=== PATIENT | male | born 1945 | race Caucasian/White ===

== ENCOUNTER 2017-04-01 05:49 | Outpatient (CLI) | payer MEDICARE, BC ==
[~2017-04-01] VITALS: Ht 177.8 cm; Wt 88.5 kg
[~2017-04-01 05:49] MED LIST: AMLODIPINE PO; HCT25T PO; HYDR-3714 PO; HYDR1TAB PO; LISI40TA PO; OMEP20TA2 PO; PRAV40TA PO
[2017-04-01] MEDS ORDERED: AMLO10TA2 PO (12:51)
[2017-04-01] MEDS ORDERED: HYDR25TA4 PO (12:51)
[2017-04-01] MEDS ORDERED: OMEP20TA7 PO (12:51)
[2017-04-01] MEDS ORDERED: LISI40TA PO (12:51)
[2017-04-01] MEDS ORDERED: PRAV40TA2 PO (12:51)
== END 2017-04-01 12:54 ==
LOC: PREOP 05:49
PROVIDERS: ATTEND Surgery
DX: Z01.818 Encounter for other preprocedural examination (principal); Z86.010 Personal history of colon polyps

== ENCOUNTER 2017-04-08 09:43 | Day surgery (SDC) | payer MEDICARE, BC, OTHER ==
[~2017-04-08] VITALS: Ht 177.8 cm; Wt 88.5 kg
[~2017-04-08 09:43] MED LIST changes: +AMLO10TA2 PO; +HYDR25TA4 PO; +OMEP20TA7 PO; +PRAV40TA2 PO
--- OUTSIDE RECORDS SUMMARY | 2017-04-08 09:46 | XMS REPORT | Continuity of Care Document ---
Author Author [facility] Organization [facility] Address Unknown Phone Unavailable Allergies Active Description Code Type Severity Reaction Onset Reported/Identified Relationship to Patient Clinical Status Yes No Known Drug Allergies [id number] Drug Allergy Unknown N/A 04/24/2011 Yes SILK TAPE SILK TAPE Moderate "WELTS" 09/15/2014 Medications There is no data. Problems Date Dx Coded Attending Type Code Diagnosis Diagnosed By 05/04/2011 Ot 241.0 NONTOX UNINODULAR GOITER 08/26/2014 Ot 241.0 08/26/2014 Ot 241.0 08/26/2014 Ot 246.9 08/26/2014 Ot 780.79 08/26/2014 Ot V72.63 08/26/2014 Ot V72.81 08/26/2014 Ot V74.8 09/15/2014 LEOBARDO SIMMONS, ANISH Argueta Ot 272.4 HYPERLIPIDEMIA NEC/NOS 09/15/2014 LEOBARDO SIMMONS, ANISH Argueta Ot 401.9 HYPERTENSION NOS 09/15/2014 LEOBARDO SIMMONS, ANISH Argueta Ot 530.81 ESOPHAGEAL REFLUX 09/15/2014 LEOBARDO SIMMONS, ANISH Argueta Ot 553.20 VENTRAL HERNIA NOS 09/15/2014 LEOBARDO SIMMONS, ANISH Argueta Ot V58.69 OTH MED,LT,CURRENT USE 09/16/2014 LEOBARDO SIMMONS, ANISH Argueta Ot 789.00 09/20/2014 LEOBARDO SIMMONS, ANISH Argueta Ot 553.20 09/24/2014 LEOBARDO SIMMONS, ANISH Argueta Ot 246.8 09/24/2014 LEOBARDO SIMMONS, ANISH Argueta Ot V67.09 09/30/2014 LEOBARDO SIMMONS, ANISH Argueta Ot 553.20 09/30/2014 LEOBARDO SIMMONS, ANISH Argueta Ot V72.63 09/30/2014 LEOBARDO SIMMONS, ANISH Argueta Ot V72.81 09/30/2014 LEOBARDO SIMMONS, ANISH Argueta Ot V74.8 11/15/2015 Ot 241.0 NONTOX UNINODULAR GOITER 11/15/2015 Ot 241.0 NONTOX UNINODULAR GOITER 11/15/2015 Ot 246.9 DISORDER OF THYROID NOS 11/15/2015 Ot 780.79 OTH MALAISE FATIGUE 11/15/2015 Ot V72.63 PRE- PROCEDURAL LABORATORY EXAMINATION 11/15/2015 Ot V72.81 EXAM-PRE- OPERATIVE CARDIOVASCULAR 11/15/2015 Ot V74.8 SCREEN- BACTERIAL DIS NEC 11/15/2015 LEOBARDO SIMMONS, ANISH Argueta Ot 553.20 VENTRAL HERNIA NOS 11/15/2015 LEOBARDO SIMMONS, ANISH Argueta Ot 789.00 ABDOMINAL PAIN, UNSPECIFIED SITE 11/15/2015 ANISH BOOTH MD Ot 553.20 VENTRAL HERNIA NOS 11/15/2015 LEOBARDO SIMMONS, ANISH Argueta Ot V72.63 PRE-PROCEDURAL LABORATORY EXAMINATION 11/15/2015 ANISH BOOTH MD Ot V72.81 [id number] CARDIOVASCULAR 11/15/2015 ANISH BOOTH MD Ot V74.8 SCREEN-BACTERIAL DIS NEC 11/15/2015 ANISH BOOTH MD Ot 246.8 DISORDERS OF THYROID NEC 11/15/2015 LEOBARDO SIMMONS, ANISH Argueta Ot V67.09 SURGERY FOLLOW-UP, OTHER SURGERY 11/16/2015 ESPERANZA SANCHEZ MD Ot M75.111 INCOMPLETE ROTATR-CUFF TEAR/RUPTR OF R S 11/17/2015 ESPERANZA SANCHEZ MD Ot M75.111 INCOMPLETE ROTATR-CUFF TEAR/RUPTR OF R S 12/07/2015 ESPERANZA SANCHEZ MD Ot M75.111 INCOMPLETE ROTATR-CUFF TEAR/RUPTR OF R S Procedures There is no data. Results There is no data. Encounters ACCT No. Visit Date/Time Discharge Status Pt. Type Provider Facility Loc./Unit Complaint [id number] 04/01/2017 05:49:00 04/01/2017 12:54:00 DIS Outpatient ANISH BOOTH MD [facility] PREOP COLO [id number] 11/15/2015 15:23:00 11/15/2015 23:59:59 CLS Outpatient ESPERANZA SANCHEZ MD [facility] RAD ROTATOR CUFF TEAR RT [id number] 09/15/2014 06:00:00 09/15/2014 15:50:00 DIS Outpatient ANISH BOOTH MD [facility] SDC VENTRAL HERNIA [id number] 09/08/2014 07:50:00 09/08/2014 23:59:59 CLS Outpatient ANISH BOOTH MD [facility] PREOP VENTRAL HERNIA [id number] 09/03/2014 12:59:00 09/03/2014 23:59:59 CLS Outpatient ANISH BOOTH MD [facility] LAB THYROIDECTOMY [id number] 08/27/2014 09:16:00 08/27/2014 23:59:59 CLS Outpatient ANISH BOOTH MD [facility] RAD VENTRAL HERNIA [id number] 08/26/2014 11:12:00 08/26/2014 23:59:59 CLS Outpatient ANISH BOOTH MD [facility] LAB ABD PAIN [id number] 04/08/2017 11:45:00 PEN Preadmit ANISH BOOTH MD [facility] ENDO HX POLYPS [id number] 08/26/2014 11:11:00 Document Registration [id number] 08/26/2014 11:11:00 Document Registration [id number] 04/24/2011 08:46:00 Document Registration [id number] 02/27/2011 11:58:00 Document Registration
[2017-04-08] MEDS ORDERED: NS IV 500 ML 500 ML IV PRN (09:53)
[2017-04-08] MEDS ORDERED: NS IV 500 ML 500 ML ONE (09:57)
[2017-04-08 10:05] VITALS: BP 151/57
--- NOTE | 2017-04-08 10:54 | Conscious Sedation/ASA ---
Conscious Sedation Pre-Proced Time Reviewed: 10:54 ASA Class: 2 Airway Mallampati Classification: ([place] appropriate class) I. II. III, IV Lungs Heart ASA score ASA 1: a normal healthy patient ASA 2: a patient with a mild systemic disease (mid diabetes, controlled hypertension, obesity ASA 3: a patient with a severe systemic disease that limits activity (angina , COPD, prior Myocardial infarction) ASA 4: a patient with an incapacitating disease that is a constant threat to life (CHF, renal failure) ASA 5: a moribund patient not expected to survive 24 hrs. (ruptured aneurysm) ASA 6: a declared brain patient whose organs are being harvested. For emergent operations, add the letter E after the classification Grade 1 Sedation Plan: Discussed options with patient/fam Note The patient is an appropriate candidate to undergo the planned procedure, sedation, and anesthesia. The patient immediately re-assessed prior to indication. ANISH BOOTH MD Apr 08, 2017 10:54 am
--- NOTE | 2017-04-08 10:54 | History & Physicial ---
History of Present Illness History of Present Illness Reason for visit/HPI to undergo surveillance colonoscopy. Previous history of polyps Date of Admission 04/08/17 Date Seen by Provider: Apr 08, 2017 Time Seen by Provider: 10:52 I consulted on this patient on 04/08/17 10:52 Attending Physician Anish Rosas MD Admitting Physician Kelli Kennedy MD Consult Allergies and Home Medications Allergies Uncoded Allergies: SILK TAPE (Allergy, Intermediate, "WELTS", 09/15/14) Home Medications Amlodipine Besylate 10 Mg Tablet, 10 MG PO DAILY, (Reported) Hydrochlorothiazide 25 Mg Tablet, 12.5 MG PO DAILY, (Reported) take 1/2 of 25mg Lisinopril 40 Mg Tablet, 40 MG PO DAILY, (Reported) Omeprazole 20 Mg Tablet.dr, 20 MG PO DAILY, (Reported) Pravastatin Sodium 40 Mg Tablet, 40 MG PO DAILY, (Reported) Past Syeznlo-Piduby-Ssqane Hx Patient Social History Marrital Status: Employed/Student: retired Alcohol Use: Rarely Uses Recreational Drug Use: No Smoking Status: Former Smoker Former Smoker, Quit: Apr 01, 1981 Recent Foreign Travel: No Contact w/other who traveled: No Recent Hopitalizations: No Recent Infectious Disease Expo: No Immunizations Up To Date Date of Pneumonia Vaccine: Mar 18, 2014 Date of Influenza Vaccine: Dec 16, 2016 Seasonal Allergies Seasonal Allergies: Yes Surgeries Gallbladder Respiratory Yes Sleep Apnea Currently Using CPAP: Yes (hasn't needed since weight loss) Cardiovascular Yes Hypertension Neurological No Reproductive System Hx Reproductive Disorders: No Gastrointestinal Yes Polyps Musculoskeletal No Endocrine History of Endocrine Disorders: Yes Endocrine Disorders: Hypothyroidsim HEENT History of HEENT Disorders: No Cancer No Psychosocial History of Psychiatric Problem: No Integumentary History of Skin or Integumenta: No Family Medical History Significant Family History: No Pertinent Family Hx Constitutional: no symptoms reported EENTM: no symptoms reported Respiratory: no symptoms reported Cardiovascular: no symptoms reported Gastrointestinal: no symptoms reported Genitourinary: no symptoms reported Musculoskeletal: no symptoms reported Skin: no symptoms reported Psychiatric/Neurological: No Symptoms Reported Physical Exam Vital Signs Vital Sign - Last 12Hours 04/08/17 10:05 Temp 97.9 Pulse 61 Resp 18 B/P (MAP) 151/57 (88) Pulse Ox 99 O2 Delivery Room Air Capillary Refill : General Appearance: No Apparent Distress HEENT: Normal ENT Inspection Neck: Normal Inspection Respiratory: Lungs Clear Gastrointestinal: Non Tender, Soft Rectal: Deferred Back: Normal Inspection Extremity: Normal Inspection Neurologic/Psychiatric: Oriented x3 Skin: Warm/Dry Assessment/Plan Assessment and Plan gentleman with a history of colon polyps. For surveillance colonoscopy. Problems: ANISH ROSAS MD Apr 08, 2017 10:54 am
[2017-04-08] MEDS ORDERED: MIDAZOLAM 2 MG/2 ML (VERSED) VIAL ONE ×3 (12:30→12:31)
[2017-04-08] MEDS ORDERED: fentaNYL INJECTION 100 MCG/2 ML AMP ONE (12:31)
[2017-04-08] MEDS: fentaNYL INJECTION 100 MCG/2 ML AMP IVP PRN ×2 (13:05→13:22)
[2017-04-08] MEDS: MIDAZOLAM 2 MG/2 ML (VERSED) VIAL IVP PRN ×3 (13:10→13:25)
[2017-04-08] MEDS ORDERED: ONDANSETRON 4 MG/2 ML (SDV) Z0FRAN ONE (13:22)
[2017-04-08] MEDS ORDERED: ONDANSETRON 4 MG/2 ML (SDV) Z0FRAN IVP ONE (13:45)
[2017-04-08 13:50] VITALS: BP 119/52
--- NOTE | 2017-04-08 13:52 | Endo Procedure Record ---
Endo Procedure Report Date of Procedure Last Colonoscopy: Yes (unsure) Apr 08, 2017 Surgeon (s) ANISH BOOTH MD Post Procedure/Op Diagnosis Sigmoid diverticulosis Procedure Performed Colonoscopy to cecum Description of Procedure Anesthesia Type: Conscious Sedation Specimen(s) collected/removed none Description of the Procedure indication for the procedure: This gentleman came in for polyp surveillance colonoscopy. Informed consent was obtained after reviewing the procedure in detail. Description of procedure: He was placed in left lateral to rectus position and his vital signs were monitored. Conscious sedation was achieved using Versed and fentanyl. Digital rectal examination was unremarkable. The colonoscope was then introduced into the rectum and advanced all the way up to the cecum. The quality of bowel preparation was rather suboptimal. The scope was then withdrawn slowly and the mucosa examined in a systematic fashion. Findings: Sigmoid diverticulosis He tolerated the procedure well and was taken back to the nursing area in a stable condition. Impression: Polyp surveillance. No recurrence. Recommend repeating in 5 years. Copies To: BLAIR KOCH MD, XAVIER M MD Apr 08, 2017 1:51 pm
--- NOTE | 2017-04-08 13:52 | Discharge Inst-Simple/Standard ---
Discharge Inst-Standard Discharge Medications New, Converted or Re-Newed RX: Other Patient Instructions/Follow Up Plan of Care/Instructions/FU: Repeat colonoscopy in 5 years Activity as Tolerated: Yes Discharge Diet: No Restrictions ANISH BOOTH MD Apr 08, 2017 1:52 pm
[2017-04-08 14:18] VITALS: BP 119/58
== END 2017-04-08 14:48 | disposition home or self-care (01) ==
LOC: ENDO 09:43
PROVIDERS: ATTEND Surgery
DX: Z09 Encounter for follow-up examination after completed treatment for conditions other than malignant neoplasm (principal); K57.30 Diverticulosis of large intestine without perforation or abscess without bleeding; Z86.010 Personal history of colon polyps; Z87.891 Personal history of nicotine dependence; I10 Essential (primary) hypertension; E03.9 Hypothyroidism, unspecified; Z79.899 Other long term (current) drug therapy

== ENCOUNTER 2017-07-23 20:30 | Outpatient (CLI) | payer BC, MEDICARE, OTHER | END 2017-07-24 06:50 | disposition home or self-care (01) | LOC: SLEEP 20:30 | PROVIDERS: ATTEND Internal Medicine Pulmonary Disease | DX: G47.33 Obstructive sleep apnea (adult) (pediatric) (principal) | CPT/HCPCS: 95810 ==

== ENCOUNTER → 2017-09-27 | Outpatient (CLI) | payer OTHER ==
--- NOTE | 2017-09-27 12:37 | Diagnostic Imaging Report ---
EXAMINATION: Left shoulder radiographs, two views. COMPARISON: None. HISTORY: 71-year-old male, left shoulder pain. FINDINGS: The left acromioclavicular joint is normally aligned. There are emir-qo-axokrjyb acromioclavicular degenerative changes with 1-2 mm undersurface osteophytes. The humeral head is not obviously dislocated. There is no pronounced glenohumeral joint space loss or osteophyte formation. There is no identified acute fracture. There is no radiographically apparent bone lesion. IMPRESSION: 1. Lvyd-fl-ghmjgiqx acromioclavicular degenerative changes with 1-2 mm undersurface osteophytes. 2. Grossly unremarkable appearance of the glenohumeral joint. Dictated by: Dictated on workstation # [id number]
== END ==
LOC: RAD 10:28
PROVIDERS: ATTEND Family Medicine
DX: M19.012 Primary osteoarthritis, left shoulder (principal)
CPT/HCPCS: 73030

== ENCOUNTER → 2018-01-01 | Outpatient (CLI) | payer MEDICARE, BC ==
[~2018-01-01] MED LIST changes: +ACHD5005 PO; -AMLO10TA2 PO; +AMLO10TA6 PO; +CETI10TA20 PO; +GADOBUTROL 10 MMOL/10 ML (GADAVIST) VIAL IV ONE; +LEVO25TA5 PO
[2018-01-01 10:28] LABS: BUN/CREATININE RATIO 16; CREATININE SERUM 0.83 MG/DL (0.60-1.30); GFR ESTIMATED > 60
--- NOTE | 2018-01-01 14:23 | Diagnostic Imaging Report ---
PROCEDURE: MR imaging of the chest with and without contrast. TECHNIQUE: Multiplanar, multisequence pre and post contrast MR imaging of the chest was performed. INDICATION: Lump on the right side of the mid back for one and a half years. FINDINGS: A marker was placed at the area of palpable abnormality in the right back, along the superior and inferior margins. At the area of palpable abnormality, there is a circumscribed mass located along the right posterior lateral chest wall. The mass abuts the ribs and appears to be deep to the latissimus musculature. This mass measures approximately 9.8 cm x 4.0 cm x 9.5 cm. This appears to be primarily homogeneously increased signal intensity on T1-weighted images, similar to subcutaneous fat. This does appear to suppress on the fat suppression images and is most consistent with a fat-containing mass. This has a very thin capsule. There is questionable minimal internal signal intensity on the axial postcontrast images. IMPRESSION: Fat-containing mass involving the right posterior lateral chest wall at the area of patient's palpable abnormality. While this most likely represents a lipoma, there is questionable minimal internal signal on postcontrast images. The possibility of a liposarcoma cannot be entirely excluded and tissue sampling would be recommended, particularly in light of the fact that the patient reports this increasing in size. Dictated by: Dictated on workstation # [id number]
== END ==
LOC: RAD 09:56
PROVIDERS: ATTEND Surgery
DX: D17.9 Benign lipomatous neoplasm, unspecified (principal); R22.2 Localized swelling, mass and lump, trunk
CPT/HCPCS: 36415; 71552; 82565; 84520

== ENCOUNTER 2018-01-06 14:13 | Outpatient (CLI) | payer MEDICARE, BC ==
[~2018-01-06] VITALS: Ht 177.8 cm; Wt 90.7 kg
[~2018-01-06 14:13] MED LIST changes: -ACHD5005 PO; -GADOBUTROL 10 MMOL/10 ML (GADAVIST) VIAL IV ONE
== END 2018-01-06 14:18 | disposition home or self-care (01) ==
LOC: PREOP 14:13
PROVIDERS: ATTEND Surgery
DX: Z01.818 Encounter for other preprocedural examination (principal)

== ENCOUNTER 2018-01-08 08:30 | Day surgery (SDC) | payer MEDICARE, BC ==
[~2018-01-08] VITALS: Ht 177.8 cm; Wt 90.7 kg
[2018-01-08 08:45] VITALS: BP 149/70
[2018-01-08] MEDS ORDERED: ceFAZolin 2 GM IV Premixed 50 ML IV ONE (08:45)
[2018-01-08] MEDS ORDERED: BUP/EPI 0.5% 1:200,000 (SENSORCAINE) 30 ML VIAL ONE (08:54)
[2018-01-08] MEDS ORDERED: NEOSTIGMINE 1 MG/ML 5 ML SYRINGE ONE ×2 (09:03→10:18)
[2018-01-08] MEDS ORDERED: proPOfol 200 MG/20 ML (DIPRIVAN) VIAL IV ONE (09:03)
[2018-01-08] MEDS ORDERED: DEXAMETHASONE 10 MG/ML (DECADRON) 1 ML VIAL ONE (09:03)
[2018-01-08] MEDS ORDERED: ONDANSETRON 4 MG/2 ML (SDV) Z0FRAN ONE (09:03)
[2018-01-08] MEDS ORDERED: MIDAZOLAM 2 MG/2 ML (VERSED) VIAL ONE (09:03)
[2018-01-08] MEDS ORDERED: fentaNYL INJECTION 100 MCG/2 ML AMP ONE (09:03)
[2018-01-08] MEDS ORDERED: GLYCOPYRROLATE 0.2 MG/ML (ROBINUL) 2 ML VIAL ONE ×2 (09:03→10:18)
[2018-01-08] MEDS ORDERED: ROCURONIUM 10 MG/ML 5 ML SYRINGE IV ONE (09:03)
[2018-01-08] MEDS ORDERED: LIDOCAINE PF 2% 5 ML (XYLOCAINE) VIAL ONE (09:03)
[2018-01-08] MEDS ORDERED: SEVOFLURANE (ULTANE) 15 ML INHAL SOLN ONE (09:03)
[2018-01-08] MEDS ORDERED: LACTATED RINGERS 1,000 ML IV PRN (09:22)
--- NOTE | 2018-01-08 09:23 | Progress Note-Pre Operative ---
Pre-Operative Progress Note H&P Reviewed The H&P was reviewed, patient examined and no changes noted. Date Seen by Provider: Dec 13, 2017 Time Seen by Provider: 11:00 Date H&P Reviewed: Jan 08, 2018 Time H&P Reviewed: 09:23 Pre-Operative Diagnosis: Lipoma of right scapular region ANISH BOOTH MD Jan 08, 2018 09:23
[2018-01-08] MEDS ORDERED: ACHD5005 PO (09:41)
--- NOTE | 2018-01-08 09:42 | Discharge Inst-Simple/Standard ---
Discharge Inst-Standard Discharge Medications New, Converted or Re-Newed RX: RX on Chart Patient Instructions/Follow Up Plan of Care/Instructions/FU: Dressings off in 48 hours. Follow-up in 3 weeks. No sutures to be removed Activity as Tolerated: Yes Discharge Diet: No Restrictions ANISH BOOTH MD Jan 08, 2018 09:42
[2018-01-08] MEDS ORDERED: ONDANSETRON 4 MG/2 ML (SDV) Z0FRAN IVP PRN (10:45)
[2018-01-08] MEDS ORDERED: morphine INJ 10 MG/ML 1ML (SYR OR VIAL) IVP ONE (10:45)
--- NOTE | 2018-01-08 10:59 | Operative Report ---
Operative Report Date of Procedure/Surgery Jan 08, 2018 Surgeon (s) ANISH BOOTH MD Clerk Secretary (s): Delonte Dubois ( Med Student III) Post-Operative Diagnosis Intramuscular lipoma right scapular region Procedure Performed Excision Description of Procedure Anesthesia Type: General Estimated blood loss (mL): Minimal Specimen(s) collected/removed Lipoma Description of the Procedure Indication for the procedure: This gentleman presented with a symptomatically, large intramuscular lipoma situated over the right scapular region. MRI confirmed the clinical impression. He was offered excision. Informed consent was obtained after reviewing the operative details and complications of hematoma , wound infection and recurrence. Description of the procedure: Initially, he was placed supine on the gurney and general anesthesia induced. Subsequently, he was turned prone onto the operating table and his pressure areas were padded and protected. Ancef was administered intravenously as prophylaxis against wound infection. After adequate antiseptic preparation, preemptive analgesia was established using 0.5 percent Marcaine with epinephrine. A transverse incision about 12 cm in length was made and the fibers of the latissimus dorsi muscle where , leading to the Seal of the lipoma. It was isolated and excised intact. It measured at least 12 cm in diameter. Hemostasis was achieved using ligaclips and cautery. The area was irrigated with saline and the muscle fibers were approximated using 3-0 PDS sutures. The fascia was closed using 3-0 Vicryl and skin using 4- 0 Vicryl, in a subcuticular fashion. He tolerated the procedure well, was turned supine, before being extubated and taken to the recovery room in a stable condition. Findings of the Procedure See operative report Allergies and Home Medications Allergies Uncoded Allergies: SILK TAPE (Allergy, Intermediate, "WELTS", 09/15/14) Home Medications Amlodipine Besylate 10 Mg Tablet, 10 MG PO DAILY, (Reported) Cetirizine HCl 10 Mg Tablet, 10 MG PO DAILY, (Reported) Hydrochlorothiazide 25 Mg Tablet, 12.5 MG PO DAILY, (Reported) take 1/2 of 25mg Hydrocodone Bit/Acetaminophen 1 Tab Tab, 1-2 TAB PO Q6H PRN for PAIN-MODERATE Prescribed by: ANISH BOOTH on 01/08/18 0941 Levothyroxine Sodium 25 Mcg Tablet, 25 MCG PO DAILY, (Reported) Lisinopril 40 Mg Tablet, 40 MG PO DAILY, (Reported) Omeprazole 20 Mg Tablet.dr, 20 MG PO DAILY, (Reported) Pravastatin Sodium 40 Mg Tablet, 40 MG PO DAILY, (Reported) Patient Home Medication List Home Medication List Reviewed: Yes ANISH BOOTH MD Jan 08, 2018 10:59
[2018-01-08 11:40] VITALS: BP 146/60
[2018-01-08 12:10] VITALS: BP 144/63
[2018-01-08] MEDS ORDERED: HYDROcodone/APAP 5 MG/325 MG (LORTAB) TAB PO ONE (12:30)
[2018-01-08] MEDS ORDERED: HYDROcodone/APAP 5 MG/325 MG (LORTAB) TAB ONE (12:32)
[2018-01-08 12:40] VITALS: BP 142/61
== END 2018-01-08 13:00 | disposition home or self-care (01) ==
LOC: SDC 08:30
PROVIDERS: ATTEND Surgery
DX: D17.9 Benign lipomatous neoplasm, unspecified (principal); Z11.2 Encounter for screening for other bacterial diseases; I10 Essential (primary) hypertension; E78.5 Hyperlipidemia, unspecified; G47.33 Obstructive sleep apnea (adult) (pediatric); K21.9 Gastro-esophageal reflux disease without esophagitis; Z79.891 Long term (current) use of opiate analgesic; Z79.899 Other long term (current) drug therapy
CPT/HCPCS: 87081

== ENCOUNTER → 2018-07-11 | Outpatient (CLI) | payer MEDICARE, BC ==
[~2018-07-11] MED LIST changes: +ACHD5005 PO; -AMLO10TA6 PO; +AMLO10TA7 PO
== END ==
LOC: CARD 08:14
PROVIDERS: ATTEND Internal Medicine Cardiovascular Disease
DX: I10 Essential (primary) hypertension (principal); E03.9 Hypothyroidism, unspecified; E78.2 Mixed hyperlipidemia; E66.9 Obesity, unspecified; G47.33 Obstructive sleep apnea (adult) (pediatric); I34.0 Nonrheumatic mitral (valve) insufficiency
CPT/HCPCS: 93306

== ENCOUNTER → 2021-09-07 | Outpatient (CLI) | payer MEDICARE, BC ==
[~2021-09-07] MED LIST changes: +AMLO-251 PO; -AMLO10TA7 PO; -CETI10TA20 PO; +CETI10TA49 PO; +LISI40TA9 PO; +OMEP20TA56 PO; -OMEP20TA7 PO
== END ==
LOC: CARD 13:00
PROVIDERS: ATTEND Internal Medicine Cardiovascular Disease
DX: I11.9 Hypertensive heart disease without heart failure (principal)
CPT/HCPCS: 93306

== ENCOUNTER → 2022-10-24 | Outpatient (CLI) | payer BC, MEDICARE ==
[2022-10-24 13:50] VITALS: BP 189/68
== END ==
LOC: CARD 13:03
PROVIDERS: ATTEND Physician Assistant
DX: I10 Essential (primary) hypertension (principal)
CPT/HCPCS: 93017